=== PATIENT | female | born 1995 | race Caucasian/White ===

== ENCOUNTER 2024-03-26 09:18 | Emergency (ER) | payer MEDICARE, MEDICAID, SELFPAY ==
[2024-03-26] VITALS (7 sets, daily range): BP systolic 114–147; BP diastolic 75–96; PULSE 71–92; RESP 16–18; TEMP 36.7–36.8; O2SAT 94–98; BMI 41.6
--- NOTE | 2024-03-26 09:19 | PC.NURSE ---
DR WOODARD AT BEDSIDE
--- NOTE | 2024-03-26 09:24 | PC.NURSE ---
pt attempting to give urine/stool sample
--- NOTE | 2024-03-26 09:26 | ED_ITS ---
Discharge Plan Disposition Patient Disposition: Home, Self-Care Prescriptions Prescriptions: New ondansetron 4 mg tablet,disintegrating 4 mg PO Q6H PRN (Reason: nausea and vomiting) Qty: 10 0RF Activity Restrictions/Add. Instructions Additional Instructions/Restrictions: hCG was nearly 1700 today. Follow-up with your PERSONAL SERVICE REPRESENTATIVE as scheduled. Zofran as needed, sent to pharmacy. Call your family doctor to establish care for this visit to the emergency department and schedule follow-up within 48 hours to ensure improvement. If you have any worsening of your condition or any other concerning signs or symptoms, return to the emergency department or your primary care doctor for further evaluation. Clinical Impressions Clinical Impression: Vomiting and diarrhea Instructions Patient Instructions: DI for Diarrhea and Traveler's Diarrhea -- Adult, DI for Diarrhea and Traveler's Diarrhea -- Child, DI for Nausea -- Adult, DI for Nausea -- Child Print Language Print Language: Moldovan Discharge ED Provider: Farhan Horton General Adult HPI General Chief complaint: Nausea/Vomiting/Diarrhea Stated complaint: States 4 wk & n/v/d Time Seen by Provider: 03/26/24 09:21 Mode of Arrival: EMS Source of Information: Patient and EMS Limitations: No Limitations Description of Symptoms (Recalled from ER Triage Doc. by RN): PT REPORTS SEVERE NAUSEA, DIARRHEA AND CRAMPING THAT STARTED THIS AM. REPORTS CURRENTLY ABOUT 4 WEEKS , History of Present Illness HPI narrative: Please note that above description of symptoms, in this electronic medical record under categorization of recalled from ER triage doctor by RN are reflective of an initial nursing assessment, however, is not reflective of my full history and physical exam that was personally taken and clarified. Consequentially, this preceding description of symptoms, which may include the patient's categorized chief complaint in the EMR, do not reflect my personal clinical impression, and the ultimate description of history of present illness and patient stated complaints should be deferred to this section of the note. Unless stated otherwise or congruent with this section of the note, additional signs, symptoms, or incongruence should be interpreted as inaccurate with my clinical impression. Related Data Previous Rx's ?Medication ?Instructions ?Recorded ondansetron 4 mg disintegrating 4 mg PO Q6H PRN nausea and 03/26/24 tablet vomiting #10 tabs Allergies Allergy/AdvReac Type Severity Reaction Status Date / Time egg Allergy Other Verified 03/26/24 09:24 fentanyl Allergy Other Verified 03/26/24 09:24 prednisone Allergy Other Verified 03/26/24 09:24 [facility] Disclaimer: The information contained in this section may have been updated after the patient was seen, as this information can be updated by other users. Social History Smoking Status: Never smoker alcohol intake: current current occupational status: employed Travel in the last 8 weeks: None ROS Obtained: Yes All systems reviewed & no additional complaints except as documented Physical Exam General General appearance: alert and obese Head Head exam: atraumatic and normocephalic Eye Eye exam: Present normal appearance, PERRL and EOMI Neck Neck exam: Present normal inspection, full ROM and trachea midline Respiratory Respiratory exam: Absent respiratory distress, wheezes, stridor, accessory muscle use or prolonged expiratory phase Cardiovascular Cardiovascular exam: Present regular rate, normal rhythm and other (Pulses equal symmetric in upper and lower extremities) Abdominal Exam Abdominal exam: Present soft and tenderness; Absent distention, guarding, rebound, rigidity or pulsatile mass Abdominal tenderness: Present diffuse and mild Extremities Exam Extremities exam: Absent edema Neurological Exam Neurological exam: Present alert, oriented X3 and CN II-XII intact; Absent motor sensory deficit Skin Skin exam: Present warm and dry; Absent diaphoresis or erythema Medical Decision Making Medical Records Medical records reviewed: Yes I reviewed the patient's medical records. Screening: Per USPSTF and CDC recommendations, given the prevalence of disease in our region, it is our hospital?s policy to screen for HIV and viral Hepatitis for all patients aged 18 and over and those with ongoing risk factors. Vasquez Inquiry Pt receiving controlled substance: No Vasquez was queried for this patient: No Vital Signs: 03/26/24 09:16 03/26/24 09:36 03/26/24 10:00 Temperature 98.3 F Temperature Source Oral Pulse Rate 87 92 H Pulse Rate [Radial] 80 Respiratory Rate 18 Blood Pressure 135/78 146/81 H Blood Pressure [Right Arm] 141/89 H Blood Pressure Mean [Right Arm] 106 Blood Pressure Source [Right Arm] Automatic Cuff Blood Pressure Position [Right Arm] Sitting 02 Sat by Pulse Oximetry 96 94 L 94 L Oxygen Delivery Method Room Air Room Air Room Air 03/26/24 10:30 03/26/24 11:00 03/26/24 12:00 Temperature Temperature Source Pulse Rate 87 71 75 Pulse Rate [Radial] Respiratory Rate Blood Pressure 146/96 H 147/88 H 114/75 Blood Pressure [Right Arm] Blood Pressure Mean [Right Arm] Blood Pressure Source [Right Arm] Blood Pressure Position [Right Arm] 02 Sat by Pulse Oximetry 96 95 95 Oxygen Delivery Method Room Air Room Air Room Air Lab Data Lab Results 03/26/24 09:32: WBC 6.5, RBC 4.57, Hgb 13.6, Hct 41.5, MCV 90.8, MCH 29.8, MCHC 32.8, RDW 13.8, Plt Count 222, MPV 11.1 H, Neut % (Auto) 81.2 H, Lymph % (Auto) 10.4, Dauphin % (Auto) 5.4, Eos % (Auto) 2.5, Baso % (Auto) 0.3, Neut # (Auto) 5.3, Lymph # (Auto) 0.7, Dauphin # (Auto) 0.4, Eos # (Auto) 0.2, Baso # (Auto) 0.0, Sodium 136, Potassium 3.7, Chloride 110 H, Carbon Dioxide 25, Anion Gap 4.7 L, BUN 16, Creatinine 0.70, Estimated Creat Clear 111, Estimated GFR 99, Est GFR ( Amer) 120, Glucose 81, Calcium 8.6, Total Bilirubin 0.6, AST 30, ALT 18, Alkaline Phosphatase 85, Total Protein 6.6, Albumin 3.7, Globulin 2.9, Albumin/Globulin Ratio 1.3, HCG, Quant 1689 H, HIV Ag/Ab Combo Qual Negative, Blood Type O Positive, Antibody Screen Negative 03/26/24 11:48: Urine Color Yellow, Urine Appearance Clear, Urine pH 6.0, Ur Specific Harvest 1.025, Urine Protein Negative, Urine Glucose (UA) Negative, Urine Ketones Trace, Urine Blood Negative, Urine Nitrate Negative, Urine Bilirubin Negative, Urine Urobilinogen 0.2, Ur Leukocyte Esterase Negative, Urine RBC None, Urine WBC Occasional, Ur Squamous Epith Cells Occasional, Urine Bacteria Trace 03/26/24 : Lipase 139 03/26/24 09:32 03/26/24 09:32 Orders (Tests/Meds): ED MEDICATIONS Discontinued Medications Generic Name Dose Route Start Last Admin Trade Name Freq PRN Reason Stop Dose Admin Acetaminophen 1,000 mg 03/26/24 09:23 03/26/24 09:40 Acetaminophen 1,000mg/100ml Vial IV 03/26/24 09:24 1,000 mg ONCE ONE Administration Sodium Chloride 1,000 mls @ 999 mls/hr 03/26/24 09:16 03/26/24 09:40 Sod Chlor 0.9% 1000ml Bag IV 03/26/24 10:16 999 mls/hr .Q1H1M ONE Administration Ondansetron HCl 4 mg 03/26/24 09:23 03/26/24 09:39 Ondansetron 4mg/2ml Vial IV 03/26/24 09:24 4 mg ONCE ONE Administration ORDERS Category Date Time Status Type and Screen Stat BBK 03/26/24 09:32 Completed CBC w/Auto Diff [Complete Blood Count Auto Diff] Stat Lab 03/26/24 09:32 Completed CMP [Comprehensive Metabolic Panel] Stat Lab 03/26/24 09:32 Completed Diarrhea 6-11 Panel, Cdiff PCR Stat Lab 03/26/24 09:30 Received HCG,Quantitative Stat Lab 03/26/24 09:32 Completed HIV Combo Stat Lab 03/26/24 09:32 Completed Hep C Ab with Reflex to RNA Stat Lab 03/26/24 09:32 Received Lipase Stat Lab 03/26/24 Completed UA [Urinalysis and Microscopic] Stat Lab 03/26/24 11:48 Completed Ova + Parasite Exam Stat Micro 03/26/24 09:30 Received US OB transvaginal Stat Ultrasound 03/26/24 10:58 Completed Medical Decision Narrative: 28-year-old female who is currently about 4 weeks by last menstrual period presenting with abdominal cramping, nausea and diarrhea. Patient states that she thinks she ate bad food last night, 03/25. States that her boyfriend also not feeling well, boyfriend's son also not feeling well with nausea, no diarrhea currently. No blood in her diarrhea, has not been vomiting. She did take Zofran to help with the nausea and helped her not vomit, but she still feels nauseated through it. Is taking a vitamin. Abdominal cramping is diffuse, mild intensity, does not radiate. No gushes of fluid, but she is having vaginal spotting. History was obtained via conversation with patient. On arrival, patient hemodynamically stable, alert, oriented x4, appropriate, GCS 15, moving all extremities spontaneously, pupils equal and reactive to light. Full physical exam performed and significant for obese female no acute distress. Abdomen soft, nondistended and nonperitoneal. She is diffusely mildly tender with negative McBurney's and Reyes sign tenderness. Differential includes gastritis, gastroenteritis, pancreatitis, ectopic , IUP, urinary tract infection, among others. Patient placed on continuous cardiac monitoring and continuous pulse ox with initial blood pressure 141/89, heart rate 80, saturation 96% on room air. Patient was given Zofran and fluids for symptomatic management and correction of underlying abnormalities. Workup independently interpreted and significant for nonactionable CBC or chemistry. Patient's hCG 1700 (up from around 603 days prior). Urinalysis negative. Patient's blood type a positive. On independent interpretation of imaging, patient has gestational sac without yolk sac intrauterine. See radiology read for full review of final results. On reevaluation, patient sleeping comfortably. Upon being woken up, states that she still feels nauseated, but feeling better. I feel this is likely human resources representative of gastroenteritis infectious versus foodborne illness. Because patient at baseline without signs or symptoms of clinical decompensation, deemed appropriate for discharge. Results were relayed to patient who voiced understanding and were agreeable to outpatient management and follow up. I discussed my clinical impression with patient and answered all questions. At this time, the evidence for any other entities in the differential is insufficient to warrant any further testing or ED observation. This was explained as well. Advisory was given that persistent or worsening symptoms require further evaluation. I confirmed the understanding of this discussion. Photocomposition Keyboard Operator disclaimer Much of this encounter note is an electronic church history professor spoken language to printed text. Electronic church history professor of the spoken language may permit errors. Although I have reviewed the note, some errors may still exist. Critical Care Critical Care Time Critical Care Time: No
[2024-03-26 09:37] LABS: Campylobacter Not Detected (NotDetected)
[2024-03-26 09:39] LABS: Adenovirus F 40/41, stool Not Detected (NotDetected); Astrovirus Not Detected (NotDetected); Clostridium Difficile A/B, PCR Not Detected (NotDetected); Cryptosporidium Not Detected (NotDetected); Cyclospora Cayetanesis Not Detected (NotDetected); Entamoeba histolytica Not Detected (NotDetected); Enteroaggregative E coli Not Detected (NotDetected); Enterotoxigenic E coli Not Detected (NotDetected); Giardia lamblia Not Detected (NotDetected); Norovirus Not Detected (NotDetected); Plesimonas Shigalloides, PCR Not Detected (NotDetected); Rotavirus A Not Detected (NotDetected); Salmonella, PCR Not Detected (NotDetected); Sapovirus Not Detected (NotDetected); Shiga-like toxin E coli Not Detected (NotDetected); Shigella Enterovasive E coli Not Detected (NotDetected); Vibrio Cholerae Not Detected (NotDetected); Vibrio, PCR Not Detected (NotDetected); Yersinia Entercolitica, PCR Not Detected (NotDetected)
[2024-03-26] MEDS: ONDANSETRON 4MG/2ML VIAL 4 MG IV (09:39)
[2024-03-26] MEDS: ACETAMINOPHEN 1,000MG/100ML VIAL 1000 MG IV (09:40)
[2024-03-26] MEDS: 0.9 % SODIUM CHLORIDE 1000ML 1,000 ML 999 ML IV (09:40)
[2024-03-26 09:45] LABS: Hemoglobin 13.6 g/dL (12.2-16.2); Red Blood Count 4.57 M/mm3 (4.20-5.40); White Blood Count 6.5 K/mm3 (4.8-10.8)
[2024-03-26 09:46] LABS: Basophils % 0.3 % (0.1-2.0); Eosinophils # 0.2 K/mm3 (0.0-0.4); Eosinophils % 2.5 % (0.1-12.0); Hematocrit 41.5 % (37.0-47.0); Lymphocytes # 0.7 K/mm3 (0.7-4.5); Lymphocytes % 10.4 % (10-50); Mean Corpuscular HGB Conc 32.8 g/dL (31.8-35.4); Mean Corpuscular Hemoglobin 29.8 pg (27.0-31.2); Mean Corpuscular Volume 90.8 fl (81-99); Mean Platelet Volume 11.1 fl (7.4-10.4); Monocytes # 0.4 K/mm3 (0.1-1.0); Monocytes % 5.4 % (1.7-9.3); Neutrophils # 5.3 K/mm3 (1.8-7.8); Neutrophils % 81.2 % (37.0-80.0); Platelet Count 222 K/mm3 (142-424); Red Cell Distribution Width 13.8 % (11.5-17.5)
--- NOTE | 2024-03-26 09:46 | PC.NURSE ---
pt has call light at bedside when she is ready to provide urine sample
[2024-03-26 09:47] LABS: Albumin Level 3.7 g/dl (3.5-5.0); Chloride 110 mmol/L (98-107); Potassium 3.7 mmoL/L (3.5-5.1); Sodium 136 mmol/L (136-145)
[2024-03-26 09:50] LABS: Alanine Aminotransferase 18 U/L (12-78); Albumin/Globulin Ratio 1.3 (1.1-1.8); Alkaline Phosphatase 85 U/L (38-126); Anion Gap 4.7 mEq/L (5-15); Aspartate Amino Transferase 30 U/L (14-36); Bilirubin,Total 0.6 mg/dl (0.2-1.3); Blood Urea Nitrogen 16 mg/dl (7-17); Calcium 8.6 mg/dl (8.4-10.2); Carbon Dioxide 25 mmol/L (22.0-30.0); Creatinine Clearance Estimated 111 mL/min (50-200); Estimated Glomerular Filt Rate 99 ml/min (>60); GFR (African American) 120 ML/MIN (>60); Globulin 2.9 g/dL (1.3-3.2); Glucose 81 mg/dl (74-100); Total Protein,Serum 6.6 g/dl (6.3-8.2)
[2024-03-26 10:07] LABS: HCG,Quantitative 1689 mIU/ml (0-5.42)
[2024-03-26 10:11] LABS: Lipase 139 U/L (23-300)
[2024-03-26 10:52] LABS: HIV Combo NEGATIVE (Negative)
--- NOTE | 2024-03-26 10:57 | PC.NURSE ---
DR WOODARD AT BEDSIDE
--- NOTE | 2024-03-26 10:58 | US_ITS ---
PROCEDURE INFORMATION: Exam: US , Transvaginal Exam date and time: 03/26/2024 11:00 AM Age: 28 years old Clinical indication: complicated by abdominal or pelvic pain; Lower; First trimester (<14 weeks 0 days); Gestational age or lmp: 4w6d; ; Additional info: Abdominal cramping, TECHNIQUE: Imaging protocol: Real-time transvaginal obstetrical ultrasound of the maternal pelvis with image documentation. Transvaginal imaging was used for better evaluation of the fetus, adnexa, and/or cervix. COMPARISON: No relevant prior studies available. FINDINGS: Gestation: Presumed gestational sac is seen within the endometrial cavity of the fundus. No pole is seen. No yolk sac is seen. BIOMETRY: Gestational age (AUA): 4 w 6 d Estimated due date (AUA): 11/27/2024 Mean sac diameter: 0.32 cm. MATERNAL: Right ovary/adnexa: Right ovary measures 1.06 cm x 1.65 cm x 1.13 cm. Right ovarian volume is 1.03 mL. Left ovary/adnexa: Left ovary measures 2.63 cm x 1.91 cm x 1.99 cm. Left ovarian volume is 5.23 mL. Corpus luteal cyst is noted. IMPRESSION: of uncertain viability. Close clinical interval follow-up is recommended to include follow-up ultrasound in 10-14 days.
--- NOTE | 2024-03-26 11:14 | PC.NURSE ---
PT TO US
--- NOTE | 2024-03-26 11:15 | PC.NURSE ---
Patient to radiology
--- NOTE | 2024-03-26 11:47 | PC.NURSE ---
PT RETURNED FROM US
[2024-03-26 11:50] LABS: Microscopic, Urine URINE MICROSCOPIC (MICROSCOPIC)
[2024-03-26 11:53] LABS: Appearance,Urine CLEAR (Clear); Bilirubin,Urine Negative (Negative); Blood, Urine Negative (Negative); Color,Urine YELLOW (Yellow); Glucose,Urine (UA) Negative (Negative); Ketones,Urine TRACE (Negative); Leukocyte Esterase,Urine Negative (Negative); Nitrate,Urine Negative (Negative); Protein,Urine Negative (Negative); Specific Gravity, Urine 1.025 (1.005-1.030); Urobilinogen,Urine 0.2 EU/dl (0.2)
[2024-03-26 12:12] LABS: Enteropathogenic E coli Detected (NotDetected)
--- NOTE | 2024-03-26 12:12 | PC.NURSE ---
STOOL PANEL RESULTS RECEIVED. PT NAME AND R/V. DR WOODARD NOTIFIED
[2024-03-26 12:30] LABS: Bacteria,Urine Trace /lpf; Squamous Epithelial Cell,Urine Occasional #/hpf (0-5); WBC,Urine Occasional #/hpf (0-3)
[2024-03-27 07:09] LABS: HCV Ab Non Reactive (Non Reactive)
== END 2024-03-26 12:40 | disposition home or self-care (01) ==
PROVIDERS: Emergency Provider Emergency Medicine; PCP Nurse Practitioner Adult Health
DX: R11.2 Nausea with vomiting, unspecified (principal); R19.7 Diarrhea, unspecified
CPT/HCPCS: 76817; 80053; 81001; 83690; 84702; 85025; 86803; 86850; 87177; 87389; 87506; 96361; 96374; 96375; 99283; J0131; J2405; J7030